=== PATIENT | male | born 1985 | race Caucasian/White ===

== ENCOUNTER → 2023-09-03 | Emergency (ER) | payer SELFPAY ==
[~2023-09-03] MED LIST: DIAZEPAM 5 MG TABLET ONE; HYDROCODONE/APAP 5/325 MG TAB ONE
--- NOTE | 2023-09-03 16:14 | ER ---
Nurse's Notes [facility] Name: Nathen Salas Age: 38 yrs Sex: Male : 1985 Arrival Date: 09/03/2023 Time: 14:02 Bed 10 Private MD: Diagnosis: Sciatica, left side Presentation: 09/03 14:45 Chief complaint: Patient states: low back pain that is reoccurring since he was in his ko1 20's from a 30ft fall out of a deer stand. Coronavirus screen: At this time, the client does not indicate any symptoms associated with coronavirus-19. Ebola Screen: No symptoms or risks identified at this time. Initial Sepsis Screen: Does the patient meet any 2 criteria? No. Patient's initial sepsis screen is negative. Does the patient have a suspected source of infection? No. Patient's initial sepsis screen is negative. Risk Assessment: Do you want to hurt yourself or someone else? Patient reports no desire to harm self or others. Onset of symptoms is unknown. 14:45 Method Of Arrival: Ambulatory [facility] 14:45 Acuity: ANDREA 4 ko1 Triage Assessment: 14:54 General: Appears uncomfortable, Behavior is calm, cooperative, appropriate for age. ko1 Pain: Complains of pain in left low back. Musculoskeletal: Circulation, motion, and sensation intact. Historical: - Allergies: 14:54 No Known Allergies; ko1 - Home Meds: 14:54 None [Active]; ko1 - PMHx: 14:54 None; ko1 - Immunization history:: Adult Immunizations up to date. - Social history:: Smoking status: Patient denies any tobacco usage or history of. Screenin:55 [facility] ED Fall Risk Assessment (Adult) History of falling in the last 3 months, ko1 including since admission No falls in past 3 months (0 pts). Abuse screen: Denies threats or abuse. Denies injuries from another. Nutritional screening: No deficits noted. Tuberculosis screening: No symptoms or risk factors identified. Assessment: 14:55 Neuro: No deficits noted. ko1 Vital Signs: 14:45 BP 183 / 99; Pulse 94; Resp 18; Temp 98.1; Pulse Ox 99% ; ko1 16:32 BP 167 / 99; Pulse 75; Resp 15; Pulse Ox 99% ; ko1 ED Course: 14:10 Patient arrived in ED. mg5 14:10 Fermín Paz DO is Attending Physician. ms3 14:48 Lily Ibanez, RN is Primary Nurse. ko1 14:54 Triage completed. ko1 14:54 Arm band placed on right wrist. Patient placed in an exam room, on a stretcher, on ko1 pulse oximetry, Patient notified of wait time. 14:55 Patient has correct armband on for positive identification. Bed in low position. Call ko1 light in reach. Pulse ox on. NIBP on. Door closed. Noise minimized. 14:55 No provider procedures requiring assistance completed. Patient did not have IV access ko1 during this emergency room visit. 16:13 Bertram Mendenhall DO is Referral Physician. ms3 16:32 Provided Education on: NA. ko1 Administered Medications: 14:52 Drug: HYDROcodone-acetaminophen PO 5 mg-325 mg 1 tabs PO once Route: PO; ko1 14:52 Drug: Diazepam PO 5 mg PO once Route: PO; ko1 Medication: 14:55 VIS not applicable for this client. ko1 Outcome: 16:13 Discharge ordered by MD. ms3 16:32 Discharged to home ambulatory, ko1 16:32 Condition: stable 16:32 Discharge instructions given to patient, Instructed on discharge instructions, follow up and referral plans. medication usage, Demonstrated understanding of instructions, follow-up care, medications, Prescriptions given X 2, 16:33 Patient left the ED. ko1 Signatures: Fermín Paz DO DO ms3 Lily Ibanez, RN RN ko1 Liss Sanchez mg5
--- NOTE | 2023-09-03 16:14 | EDPHYS ---
Physician Documentation [facility] Name: Nathen Salas Age: 38 yrs Sex: Male : 1985 Arrival Date: 09/03/2023 Time: 14:02 Bed 10 Private MD: ED Physician Fermín Paz HPI: 09/03 14:50 This 38 yrs old Male presents to ER via Unassigned with complaints of Back Pain. ms3 14:50 38-year-old male with past medical history of sciatica, bulging disc presents emergency vt3 department for left-sided sciatica that began 1 and half weeks prior to arrival. Patient states he has back pain since his 20s. An MRI performed in [facility] showed bulging disks. Patient states he was unable to sleep last night and is having severe sciatica.. Historical: - Allergies: 14:54 No Known Allergies; ko1 - Home Meds: 14:54 None [Active]; ko1 - PMHx: 14:54 None; ko1 - Immunization history:: Adult Immunizations up to date. - Social history:: Smoking status: Patient denies any tobacco usage or history of. ROS: 14:50 Constitutional: Negative for fever, and chills. Neck: Negative for injury, pain, and ms3 swelling, Cardiovascular: Negative for chest pain, and palpitations. Respiratory: Negative for shortness of breath, cough, wheezing, and pleuritic chest pain, Abdomen/GI: Negative for abdominal pain, nausea, vomiting, diarrhea, and constipation, MS/Extremity: Negative for injury and deformity, Skin: Negative for injury, rash, and discoloration, Exam: 14:50 Constitutional: This is a well developed, well nourished patient who is awake, alert, ms3 and in no acute distress. Head/Face: Normocephalic, atraumatic. Neck: Trachea midline, no cervical lymphadenopathy. Supple, full range of motion without nuchal rigidity, or vertebral point tenderness. No Meningismus. Chest/axilla: Normal chest wall appearance and motion. Nontender with no deformity. Cardiovascular: Regular rate and rhythm with a normal S1 and S2. No gallops, murmurs, or rubs. Normal PMI, no JVD. No pulse deficits. Respiratory: Lungs have equal breath sounds bilaterally, clear to auscultation and percussion. No rales, rhonchi or wheezes noted. No increased work of breathing, no retractions or nasal flaring. Abdomen/GI: Soft, non-tender, with normal bowel sounds. No distension or tympany. No guarding or rebound. No evidence of tenderness throughout. Skin: Warm, dry with normal turgor. Normal color with no rashes, no lesions, and no evidence of cellulitis. MS/ Extremity: Pulses equal, no cyanosis. Neurovascular intact. Full, normal range of motion. 14:50 Back: pain, that is moderate, of the left low back, muscle spasm, is appreciated in the left low back, Vital Signs: 14:45 BP 183 / 99; Pulse 94; Resp 18; Temp 98.1; Pulse Ox 99% ; ko1 16:32 BP 167 / 99; Pulse 75; Resp 15; Pulse Ox 99% ; ko1 MDM: 14:48 Patient medically screened. ms3 14:50 Differential diagnosis: chronic back pain, Sciatica vs DDD. ms3 16:26 Data reviewed: vital signs, nurses notes, and as a result, I will discharge patient. I ms3 considered the following discharge prescriptions or medication management in the emergency department Medications were administered in the Emergency Department. See MAR. 16:27 Care significantly affected by the following chronic conditions: Chronic back pain. ms3 Counseling: I had a detailed discussion with the patient and/or guardian regarding the historical points, exam findings, and any diagnostic results supporting the discharge/admit diagnosis, the need for outpatient follow up, to return to the emergency department if symptoms worsen or persist or if there are any questions or concerns that arise at home. Special discussion: I discussed with the patient/guardian in detail that at this point there is no indication for admission to the hospital. It is understood, however, that if the symptoms persist or worsen the patient needs to return immediately for re-evaluation. ED course: Patient improved, alert and orient x 4, ambulatory number department, speaking full sentences, in no apparent distress. Patient to follow-up with Dr. Mendenhall in 2 to 3 days. All questions were answered. Return precautions discussed include worsening symptoms, or any other concerns.. Administered Medications: 14:52 Drug: HYDROcodone-acetaminophen PO 5 mg-325 mg 1 tabs PO once Route: PO; ko1 14:52 Drug: Diazepam PO 5 mg PO once Route: PO; ko1 Disposition Summary: 09/03/23 16:13 Discharge Ordered Notes: Location: Home ms3 Condition: Stable ms3 Diagnosis - Sciatica, left side ms3 Followup: ms3 - With: Bertram Mendenhall DO - When: 2 - 3 days - Reason: Recheck today's complaints Discharge Instructions: - Discharge Summary Sheet ms3 - Sciatica ms3 Forms: - Medication Reconciliation Form ms3 - Thank You Letter ms3 - Antibiotic Education ms3 - Prescription Opioid Use ms3 - Patient Portal Instructions ms3 - Leadership Thank You Letter ms3 Prescriptions: - Ibuprofen 600 mg Oral Tablet - take 1 tablet ORAL route every 6 hours As needed take with food; 30 tablet; ms3 Refills: 0, Product Selection Permitted - Cyclobenzaprine 10 mg Oral Tablet - take 1 tablet ORAL route every 8 hours As needed; 30 tablet; Refills: 0, ms3 Product Selection Permitted Signatures: Fermín Paz DO DO ms3 Lily Ibanez, RN RN ko1
[2023-09-03 16:55] VITALS: BP 167/99; TEMP 98.1; O2SAT 99
== END ==
LOC: ER 14:02
DX: M54.32 Sciatica, left side (principal)